=== PATIENT | male | born 1950 | race Caucasian/White ===

== ENCOUNTER 2021-05-01 16:47 | Outpatient (CLI) | payer MEDICARE, OTHER, SELFPAY ==
[2021-05-01] MEDS: 0.9% Saline Lock 10 ML Syringe IV (17:08)
[2021-05-01 17:20] VITALS: BP 133/67; PULSE 65; RESP 16; TEMP 36.7; O2SAT 98; BMI 20.9
[2021-05-01 18:05] VITALS: BP 139/70; PULSE 66; RESP 16; TEMP 36.3; O2SAT 98
[2021-05-01 19:00] VITALS: BP 135/62; PULSE 64; RESP 16; TEMP 36.6; O2SAT 99
== END 2021-05-01 19:10 | disposition home or self-care (01) ==
LOC: MS3OUT 16:49 → MS3 16:49
PROVIDERS: Referring Provider Nurse Practitioner Adult Health; Visit Provider Nurse Practitioner Adult Health
DX: Z23 Encounter for immunization (principal); U07.1 COVID-19
CPT/HCPCS: J7050; M0245; Q0245; A4216